=== PATIENT | male | born 1965 | race Caucasian/White ===

== ENCOUNTER 2024-03-24 15:49 | Outpatient (CLI) | payer OTHER, SELFPAY | END 2024-03-24 15:50 | disposition home or self-care (01) | LOC: AMB 03-30 17:39 | PROVIDERS: Visit Provider Emergency Medicine | DX: R55 Syncope and collapse (principal); R41.0 Disorientation, unspecified; E11.649 Type 2 diabetes mellitus with hypoglycemia without coma | CPT/HCPCS: A0998 ==

== ENCOUNTER 2025-02-17 11:45 | Outpatient (RCR) | payer OTHER, SELFPAY | END 2025-06-17 23:59 | disposition home or self-care (01) | PROVIDERS: Visit Provider Orthopaedic Surgery | DX: M75.121 Complete rotator cuff tear or rupture of right shoulder, not specified as traumatic (principal); S43.001D Unspecified subluxation of right shoulder joint, subsequent encounter; M75.21 Bicipital tendinitis, right shoulder; M75.41 Impingement syndrome of right shoulder; Z51.89 Encounter for other specified aftercare | CPT/HCPCS: 97110; 97140; 97161 ==